=== PATIENT | male | born 1960 | race Caucasian/White ===

== ENCOUNTER 2022-12-22 06:22 | Day surgery (SDC) | payer BC, SELFPAY ==
[2022-12-22 06:35] VITALS: BMI 24.4
[2022-12-22 06:41] VITALS: BP 144/84; PULSE 112; RESP 15; TEMP 36.7; O2SAT 98
[2022-12-22] MEDS: Lactated Ringers 1,000 ML 50 ML IVCONT (06:54)
--- NOTE | 2022-12-22 07:17 | P.CONAN_ITS ---
[facility] Past Medical History Medical History Elevated PSA GI bleed H. pylori infection Peptic ulcer disease Surgical History Surgical History H/O colonoscopy H/O esophagogastroduodenoscopy Hx of appendectomy History of Problems with Anesthesia: No Social History Social History Patient Tobacco Use Status: Never used Tobacco Use of substances other than those prescribed or required for medical reasons: No Are you DNR?: No Advance Directives: No Advance Directives Information Provided: Yes Meds Allergies Allergy/AdvReac Type Severity Reaction Status Date / Time amoxicillin Allergy Unknown RASH Verified 12/22/22 06:33 Peanuts Allergy Unknown Swelling Uncoded 12/22/22 06:32 Active Medications: Current Medications Lactated Ringer's (Lr) 1,000 mls @ 50 mls/hr IVCONT .Q20H FELICIA Last Admin: 12/22/22 06:54 Dose: 50 mls/hr Home Medications Medication Instructions Recorded Confirmed Last Taken Type amlodipine 5 mg tablet 1 tab PO DAILY 12/21/22 12/21/22 12/22/22 05:30 History losartan 100 mg tablet 1 tab PO DAILY 12/21/22 12/21/22 Unknown History Exam Exam Date and Time: December 22, 2022 0717 Height,Weight and Vital Signs: Height 5 ft 11 in Weight 79.379 kg Last Vital Signs Temp 98.0 F 12/22/22 06:41 Pulse 112 H 12/22/22 06:41 Resp 15 12/22/22 06:41 BP 144/84 H 12/22/22 06:41 Pulse Ox 98 12/22/22 06:41 O2 Del Method 12/22/22 06:41 Airway Mallampati Class: II TM Dist: >3cm Neck ROM: Full Loose/Missing/Broken Teeth: No Heart: RRR Lungs: CTA Assessment and Plan Assessment Anesthesia Assessment: Anesthesia Plan Discussed and Chart Reviewed Final Anesthetic Review History of Problems with Anesthesia: No NPO: Yes ASA Class: II Final Preanesthetic Review: Meds/Allgs Chart Reviewed, Consent Obtained/Reviewed and Anes Risks/Benef Reviewed Patient Risk: Low Procedure Risk: Low Anesthetic Plan Anesthetic Plan: MAC: Disposition: Standard PACU
--- NOTE | 2022-12-22 07:21 | MHC.SHP ---
Pre-Procedural Eval Section A Date of Service: 12/22/22 Section B Chief Complaint: screening Details of Present Illness: see H&P no changes Relevant Family History (Specify if Yes): No Relevant Social History: None Present Medications: see Short Stay Collaborative assessment Medical History: No relevant PMH History of Previous Operations: No relevant previous surgery Allergies: Allergies Allergy/AdvReac Type Severity Reaction Status Date / Time amoxicillin Allergy Unknown RASH Verified 12/22/22 06:33 Peanuts Allergy Unknown Swelling Uncoded 12/22/22 06:32 Review of Systems Sugical H&P ROS: Negative: Constitution, Cardiovascular, Respiratory, Neurological, Psychiatric, Hem-Onc, Allergic/Immunologic, Gastrointestinal, Genitourinary, Musculoskeletal, Integumentary, Endocrine and Eyes/Ears/Nose/Throat Exam Surgical H&P Exam: Normal: HEENT, Normal: Heart, Normal: Lungs, Normal: Extremities, Normal: Abdomen, Normal: Skin and Normal: Neurological Plan Diagnosis/Plan: Unchanged I have reviewed the history and physical and performed a pertinent physical examination on my patient. No changes have occurred unless specified. Time Spent With Patient Time: Total time managing care of this patient today ____ minutes.
--- NOTE | 2022-12-22 08:00 | PM.OP ---
Brief Operative Note Date of Service: 12/22/22 Pre-op diagnosis: screening Post-op diagnosis: same Procedure: colonoscopy Surgeon: Christiano Mason Anesthesia: MAC Was an Cold Roll Inspector used for this Procedure?: No Estimated blood loss (mL): 2 Pathology: other Condition: stable Disposition: PACU
[2022-12-22 08:03] VITALS: BP 103/66; PULSE 88; RESP 20; TEMP 36.9; O2SAT 97
[2022-12-22 08:18] VITALS: BP 119/81; PULSE 83; RESP 20; TEMP 36.9; O2SAT 97
--- NOTE | 2022-12-22 10:09 | OP_ITS ---
SURGEON: Christiano Mason MD INDICATIONS: Colon cancer screening. PREOPERATIVE DIAGNOSIS: POSTOPERATIVE DIAGNOSIS: PROCEDURE PERFORMED: Colonoscopy to the terminal ileum with snare polypectomy. ESTIMATED BLOOD LOSS: COMPLICATIONS: ANESTHESIA: Monitored anesthesia care. ASSISTANTS: SPECIMENS: DESCRIPTION OF PROCEDURE: The history and physical was performed. The risks and benefits of the procedure were explained to the patient, and informed consent was obtained. The procedure was performed on 12/22/2022. The patient was placed in the left lateral decubitus position. A digital rectal exam was performed, and it was found to be normal. The Olympus pediatric video colonoscope was introduced into the rectum and advanced to the cecum without difficulty. The cecum was identified by translumination, palpation, and identification of the ileocecal valve. Examination was performed. The scope was removed. He tolerated the procedure well, and was returned to the recovery area in stable condition. FINDINGS: The terminal ileum was normal. The visualized colonic mucosa was normal. A total of 3 polyps were identified and removed with a cold snare. All were less than 10 mm. These were located in the cecum at 75 cm and in the rectum. No other polyps were seen. The quality of the prep was good. There was mild sigmoid diverticulosis. Retroflexed examination showed small internal hemorrhoids. IMPRESSION: Colon polyp. RECOMMENDATION: Follow up the biopsy results. MD SCOTT Harper/MODL / [id number]
== END 2022-12-22 08:50 | disposition home or self-care (01) ==
PROVIDERS: PCP Internal Medicine; Visit Provider Internal Medicine Gastroenterology
PROC: 0DJD8ZZ Inspection of Lower Intestinal Tract, Via Natural or Artificial Opening Endoscopic (ICD-10-PCS; CPT 45378; principal; 2022-12-22 07:30)
DX: Z12.11 Encounter for screening for malignant neoplasm of colon (principal); Z86.010 Personal history of colon polyps; D12.0 Benign neoplasm of cecum; D12.4 Benign neoplasm of descending colon; D12.8 Benign neoplasm of rectum; K57.30 Diverticulosis of large intestine without perforation or abscess without bleeding; K64.8 Other hemorrhoids; R97.20 Elevated prostate specific antigen [PSA]; K27.9 Peptic ulcer, site unspecified, unspecified as acute or chronic, without hemorrhage or perforation; Z79.899 Other long term (current) drug therapy; Z88.0 Allergy status to penicillin
CPT/HCPCS: 45385; 88305